=== PATIENT | female | born 1970 | race Caucasian/White ===

== ENCOUNTER 2017-10-19 04:52 | Day surgery (SDC) | payer OTHER ==
[2017-10-19] MEDS ORDERED: DUI500 PO (09:02)
[2017-10-19] MEDS ORDERED: TRAM1TAB98 PO (09:02)
== END 2017-10-19 15:30 | disposition home or self-care (01) ==
LOC: CIR.AMB 04:52
DX: M23.352 Other meniscus derangements, posterior horn of lateral meniscus, left knee (principal); M17.12 Unilateral primary osteoarthritis, left knee

== ENCOUNTER 2020-09-17 09:00 | Inpatient (IN) | payer OTHER ==
[~2020-09-17] VITALS: Ht 172.7 cm; Wt 101.6 kg
[~2020-09-17 09:00] MED LIST: DUI500 PO; TRAM1TAB98 PO
[2020-09-17] MEDS ORDERED: MOTRIN PM CAPL1 EACH PO (10:26)
[2020-09-17] MEDS ORDERED: NABUMETONE750 MG PO (10:27)
[2020-09-27] MEDS ORDERED: XARELTO10 MG PO (08:12)
[2020-09-27] MEDS ORDERED: INTEGRA PLUS C1 EACH PO (08:12)
[2020-09-27] MEDS ORDERED: OXYC1TAB9 PO (08:12)
[2020-09-27] MEDS ORDERED: BACTRIM DS TAB1 EACH PO (08:12)
== END 2020-09-27 13:52 | DRG 470 ==
LOC: EDSTATUS 09:00 → ADM 09:00 → SURH 09-24 09:00 → O/R 09-24 09:06 → SURH 09-24 17:52
PROVIDERS: ADMIT Orthopaedic Surgery Sports Medicine; ATTEND Orthopaedic Surgery Sports Medicine
PROC: 30233N1 Transfusion of Nonautologous Red Blood Cells into Peripheral Vein, Percutaneous Approach (ICD-10-PCS; 2020-09-24)
PROC: 0SRC0J9 Replacement of Right Knee Joint with Synthetic Substitute, Cemented, Open Approach (ICD-10-PCS; principal; 2020-09-24 18:15)
DX: M17.11 Unilateral primary osteoarthritis, right knee (principal); D64.89 Other specified anemias; E66.8 Other obesity